=== PATIENT | female | born 2000 | race Caucasian/White ===

== ENCOUNTER 2020-03-19 22:37 | Observation (INO) | payer OTHER ==
[~2020-03-19] VITALS: Ht 165.1 cm; Wt 70.5 kg
[2020-03-19 23:06] LABS: BASO # 0.1 (0.0-0.2); BASO % 0.3 % (0.0-2.0); EOS % 0.1 % (0-4.0); GRAN # 16.6 (1.4-6.5); GRAN % 83.2 % (42.2-75.2); HEMATOCRIT 38.8 % (35.0-45.0); HEMOGLOBIN 13.3 g/dl (12.0-15.0); LYMPH # 2.2 (1.2-3.4); LYMPH % 10.8 % (20.0-51.0); MEAN CELL VOLUME 89 fl (80.0-95.0); MEAN CORPUSCULAR HEMOGLOBIN 30 pg (26.0-32.0); MEAN CORPUSCULAR HGB CONC 34 g/dl (33.0-37.0); MEAN PLATELET VOLUME 9.5 fl (7.4-10.4); MONO % 5.1 % (1.7-9.3); PLATELET COUNT 365 K/mm3 (130-400); RED BLOOD COUNT 4.37 M/mm3 (4.10-5.30); REDCELL DISTRIBUTION WIDTH-CV 11.4 % (11.5-14.5)
[2020-03-19 23:23] LABS: ALANINE AMINOTRANSFERASE 17 U/L (4-34); ALBUMIN 4.9 gm/dL (3.5-5.0); ALKALINE PHOSPHATASE 88 U/L (50-136); ANION GAP 19 mmol/L (7-16); AST,SGOT 30 U/L (15-37); BILIRUBIN,TOTAL 0.8 mg/dL (0.0-1.0); BLOOD UREA NITROGEN 10 mg/dL (7-17); CALCIUM 9.7 mg/dL (8.4-10.2); CARBON DIOXIDE 15 mmol/L (22-30); CHLORIDE 104 mmol/L (98-107); CREATININE, serum 0.74 (0.52-1.25); GLUCOSE 135 mg/dL (74-106); POTASSIUM 3.2 mmol/L (3.4-5.0); SODIUM 138 mmol/L (137-145); TOTAL PROTEIN 8.2 gm/dL (6.4-8.2)
[2020-03-20] VITALS (9 sets, daily range): BP systolic 103–134; BP diastolic 46–70; PULSE 76–112; TEMP 98.4
[2020-03-20 00:01] LABS: C-REACTIVE PROTEIN < 0.5 mg/dL (0.0-0.9)
[2020-03-20] MEDS ORDERED: ZYRTEC5 MG PO (05:08)
[2020-03-20] MEDS ORDERED: ADVIL200 MG PO (05:08)
--- NOTE | 2020-03-20 05:21 | NUR ---
Pt. arrived to the floor from PACU at 0500. Pt. is A&OX3, assessment complete. IV to rt. ac patent. 2 abd. lap sites noted with bandaids. Pt. reports pain at a 3 on pain scale at this time. Pt. denies need for pain meds at this time. Call light within reach.
--- NOTE | 2020-03-20 08:00 | NUR ---
Patient resting in bed, mother at bedside. Patient is alert and oriented, answers questions appropriately. Patient denies pain, two lap sites to abd are CDI. Patient denies nausea but states she does not have much of an appetite; is attempting to eat some breakfast now. Patient denies further needs, call light within reach.
[2020-03-20] MEDS ORDERED: PERCOCET 325 MG1 TA2 PO (08:40)
[2020-03-20] MEDS ORDERED: MOTRIN 600600 MG/TAB PO (08:40)
--- NOTE | 2020-03-20 09:20 | NUR ---
Initial visit; Tiffani and her mom thanked Inventory Control Analyst for looking in on her and offering God's blessings and to keep her in Inventory Control Analyst's prayers.
--- NOTE | 2020-03-20 15:40 | NUR ---
Discharge teaching completed. Discussed follow up appointment, bathing and activity restrictions, discharge medication, and all questions asked and answered. Patient and mother denied further questions. INT removed from right AC, catheter intact, hemostasis achieved. Patient confirms all belongings are gathered, patient escorted to ED entrance where she entered a private vehicle.
== END 2020-03-20 15:40 | disposition home or self-care (01) ==
LOC: COL.ER 22:37 → SURG 03-20 03:00
PROVIDERS: Emergency Medicine; Nurse Practitioner; ADMIT Obstetrics & Gynecology
DX: N83.8 Other noninflammatory disorders of ovary, fallopian tube and broad ligament (principal); N83.53 Torsion of ovary, ovarian pedicle and fallopian tube; J45.909 Unspecified asthma, uncomplicated
CPT/HCPCS: G0378; J0690; J1100; J1170; J1885; J2175; J2405; J2704; J2710; J3010; J7030; Q9967